=== PATIENT | male | born 2005 | race Caucasian/White ===

== ENCOUNTER 2023-08-27 10:42 | Emergency (ER) | payer MEDICAID, OTHER ==
[~2023-08-27] VITALS: Ht 172.7 cm; Wt 54.4 kg
[2023-08-27] MEDS ORDERED: TDAP DIPH,PERTUSS,TET VAC/PF 0.5 ML DISP.SYRIN IM ONE (11:07)
[2023-08-27] MEDS ORDERED: LIDOCAINE 2%-EPI 1:100,000 20 ML VIAL ONE (11:07)
[2023-08-27] MEDS: TDAP DIPH,PERTUSS,TET VAC/PF 0.5 ML DISP.SYRIN IM ONE (11:27)
[2023-08-27] MEDS: LIDOCAINE 2%-EPI 1:100,000 20 ML VIAL IJ ONE (11:27)
[2023-08-27 11:52] VITALS: BP 120/74; TEMP 98; O2SAT 99
== END 2023-08-27 12:02 | disposition home or self-care (01) ==
LOC: ER 10:42
DX: S06.0X0A Concussion without loss of consciousness, initial encounter (principal); W26.8XXA Contact with other sharp object(s), not elsewhere classified, initial encounter; Y93.89 Activity, other specified; Y92.89 Other specified places as the place of occurrence of the external cause; Y99.8 Other external cause status
CPT/HCPCS: 90715; A4606; A4663